=== PATIENT | female | born 1970 | race Two or more races ===

== ENCOUNTER 2021-05-08 09:14 | Emergency (ER) | payer MEDICAID, OTHER ==
[~2021-05-08] VITALS: Ht 167.6 cm; Wt 89.4 kg
[2021-05-08 09:46] VITALS: BP 149/84
[2021-05-08] MEDS ORDERED: HYDROmorphone HCL 2 MG/ML VL IV ONE (10:00)
[2021-05-08] MEDS ORDERED: PROMETHAZINE HCL 25 MG/ML 1ML IM ONE (10:00)
[2021-05-08] MEDS ORDERED: methylPREDNISolone SOD SUCC 125 MG/2 ML VL IM ONE (10:00)
[2021-05-08] MEDS ORDERED: KETOROLAC TROMETH 60MG/2ML VIAL IM ONE (10:00)
[2021-05-08] MEDS ORDERED: PRED20TA2 PO (10:29)
== END 2021-05-08 10:34 | disposition home or self-care (01) ==
LOC: ER 09:14
DX: G89.29 Other chronic pain (principal); M54.50 Low back pain, unspecified; M62.830 Muscle spasm of back; R94.31 Abnormal electrocardiogram [ECG] [EKG]; Z98.51 Tubal ligation status
CPT/HCPCS: 93005; 96372; 99284; J1885

== ENCOUNTER 2021-07-18 08:27 | Emergency (ER) | payer MEDICAID ==
[~2021-07-18] VITALS: Ht 167.6 cm; Wt 90.7 kg
[~2021-07-18 08:27] MED LIST: PRED20TA2 PO
[2021-07-18 09:03] VITALS: BP 150/80
[2021-07-18] MEDS ORDERED: KETOROLAC TROMETH 60MG/2ML VIAL IM ONE (09:30)
[2021-07-18] MEDS ORDERED: TRAM-297 PO (09:44)
[2021-07-18] MEDS ORDERED: PRED20TA2 PO (09:44)
== END 2021-07-18 10:05 | disposition home or self-care (01) ==
LOC: ER 08:27
DX: G89.29 Other chronic pain (principal); M54.50 Low back pain, unspecified; I10 Essential (primary) hypertension; E78.5 Hyperlipidemia, unspecified; Z79.899 Other long term (current) drug therapy
CPT/HCPCS: 96372; 99283; J1885

== ENCOUNTER 2021-08-22 13:00 | Emergency (ER) | payer MEDICAID ==
[~2021-08-22] VITALS: Ht 167.6 cm; Wt 90.7 kg
[~2021-08-22 13:00] MED LIST changes: +TRAM-297 PO
[2021-08-22] MEDS ORDERED: MEPERIDINE HCL (50 MG/ML) 1 ML VIAL IM ONE (14:15)
[2021-08-22] MEDS ORDERED: PROMETHAZINE HCL 25 MG/ML 1ML IM ONE (14:15)
[2021-08-22 14:26] VITALS: BP 113/73
== END 2021-08-22 15:00 | disposition home or self-care (01) ==
LOC: ER 13:00
DX: G89.29 Other chronic pain (principal); M54.50 Low back pain, unspecified; E78.5 Hyperlipidemia, unspecified; I10 Essential (primary) hypertension; Z98.51 Tubal ligation status
CPT/HCPCS: 96372; 99284; J2175; J2550

== ENCOUNTER 2024-02-21 08:51 | Emergency (ER) | payer MEDICAID ==
[~2024-02-21] VITALS: Ht 167.6 cm; Wt 94.7 kg
[2024-02-21] MEDS: KETOROLAC TROMETH 30 MG/ML 1ML VIAL IV ONE (10:03)
[2024-02-21] MEDS: methylPREDNISolone SOD SUCC 125 MG/2 ML VL IM ONE (10:03)
[2024-02-21 10:23] VITALS: BP 156/94; PULSE 84; RESP 17; TEMP 98.9; O2SAT 98
[2024-02-21 10:33] LABS: Urine Bacteria FEW /hpf (None Seen); Urine Blood Negative /uL (Negative); Urine Clarity Clear (Clear); Urine Color Light-Yellow (Yellow); Urine Mucus FEW (None Seen); Urine Protein, UAD TRACE (Negative); Urine Specific Gravity 1.022 (1.001-1.035); Urine Urobilinogen Normal (Negative); Urine WBC 8 /hpf (0 - 5); Urine pH 5.5 (5.0-9.0)
[2024-02-21] MEDS ORDERED: PRED20TA2 PO (11:06)
[2024-02-21] MEDS ORDERED: IBUP-1454 PO (11:06)
--- NOTE | 2024-02-21 11:07 | ED.PDOC ---
Back pain HPI HPI Comments This is a pleasant 53-year-old female that presents with a chief complaint of atraumatic back pain x1 day. Per patient she has a history of chronic back pain, ankylosing spondylolysis and sciatica. Reports acute flare-up that started yesterday while sitting on the couch watching television. The pain is located to the lower back and radiates down her posterior left lower extremity Has not taken medications for the symptoms listed above Denies history of chronic steroid use or history of osteoporosis Denies any history of cancer Denies fevers chills night sweats nausea vomiting unintentional weight loss Denies IV drug use history of HIV/TB Denies abdominal "tearing" pain Denies syncope Denies urinary incontinence or urinary changes Denies numbness tingling of the groin or inner thigh Denies previous back procedure or surgery Chief Complaint: Back Pain Time Seen by MD: 09:53 Primary Care Provider: ARSH Akbar Notes: Nurses Notes, Medications, Allergies Allergies: Coded Allergies: No Known Drug Allergy (Verified Allergy, Unknown, 07/18/21) Home Meds Active Scripts Tramadol Hcl (Ultram) 50 Mg Tab, 50 MG PO TID, #20 TAB Prov:SINDHU JOHNSTON 07/18/21 Prednisone (Prednisone) 20 Mg Tab, 40 MG PO DAILY, #20 MG Prov:SINDHU JOHNSTON 07/18/21 Prednisone (Prednisone) 20 Mg Tab, 40 MG PO DAILY for 10 Days, #20 MG Prov:SINDHU JOHNSTON 05/08/21 Information Source: Patient Mode of Arrival: Ambulatory Past Medical History PAST MEDICAL HISTORY: High Lipids, HTN 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: , 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 Family History Family History: Reviewed,noncontributory to illness Social History Smoker: Non-Smoker Alcohol: Occasionally Drugs: Denies Drug Use Lives In: Home All Other Systems: Reviewed and Negative (Per HPI) Physical Exam General Appearance: No Apparent Distress, Normal HEENT: Head (Normocephalic atraumatic), Normal ENT Inspection, Pharynx Normal, TMs Normal Neck: Full Range of Motion, Non-Tender, Normal, Normal Inspection Respiratory: Chest Non-Tender, Lungs Clear, No Accessory Muscle Use, No Respiratory Distress, Normal Breath Sounds Cardiovascular: No Edema, No JVD, No Murmur, No Gallop, Normal Peripheral Pul ses, Regular Rate/Rhythm Breast Exam: Deferred Gastrointestinal: No Organomegaly, Non Tender, No Pulsatile Mass, Normal Bowel Sounds, Soft Genitalia: Deferred Pelvic: Deferred Rectal: Deferred Extremities: No calf tenderness, Normal capillary refill, Normal inspection, Normal range of motion, Non-tender, No pedal edema Musculoskeletal : Extremity Location: Back (No gross abnormality on inspection. No midline tenderness. Right straight leg raise test positive) Apperance: Normal Neurologic: Alert, No Motor Deficits, Normal Affect, Normal Mood, No Sensory D eficits Cerebellar Function: Normal Reflexes: Normal Skin: Dry, Normal Color, Warm Lymphatic: No Adenopathy Was a procedure done? Was a procedure done?: No Back Pain Differential Dx Differential Diagnosis: Musculoskeletal Pain, Strain, Other X-Ray, Labs, Meds, VS Vital Signs Date Time Temp Pulse Resp B/P (MAP) Pulse Ox O2 Delivery O2 Flow Rate FiO2 02/21/24 10:23 84 17 98 Room Air 02/21/24 10:23 98.9 84 17 156/94 (114) 98 98.9 02/21/24 09:15 99.1 85 16 152/93 (112) 98 Lab Test 02/21/24 09:55 Range/Units Urine Color Light-yellow Yellow Urine Clarity Clear Clear Urine pH 5.5 5.0-9.0 Urine Specific Flushing 1.022 1.001-1.035 Urine Protein Trace H Negative Urine Ketones Negative Negative Urine Blood Negative Negative /uL Urine Nitrite Negative Negative Urine Bilirubin Negative Negative Urine Urobilinogen Normal Negative mg/dL Urine Leukocyte Esterase Negative Negative /uL Urine RBC 1 0 - 4 /hpf Urine WBC 8 0 - 5 /hpf Urine Squamous Epithelial Cells Few <5 /hpf Urine Bacteria Few H None Seen /hpf Urine Mucus Few None Seen Urine Glucose Normal Normal mg/dL Current Medications Medications (Trade) Dose Ordered Sig/Mara Route Start Time Stop Time Status Last Admin Methylprednisolone Sodium Succinate (Solu Medrol) 125 mg ONCE ONCE IM 02/21/24 10:00 02/21/24 10:01 DC 02/21/24 10:03 Ketorolac Tromethamine (Toradol Injection) 30 mg ONCE ONCE IV 02/21/24 10:00 02/21/24 10:01 DC 02/21/24 10:03 X-Ray, Labs, Meds, VS Comment History and physical exam consistent with muscle strain. No indication for imaging at this time. Patient ambulatory Supportive care advised (rest, ice, heat, NSAIDs, stretching exercises) Massage muscles with cold pack or ice for 20 minutes 4 times per day. Usually most useful if there is swelling during the first 48 hours Heating pad on the most painful area for 20 minutes to relieve muscle spasm Sleep and the most comfortable sleeping position (usually on the side with knees bent) Light stretching, no strenuous activity, avoid frequent bending, avoid carrying heavy objects Discussed possible benefits of yoga and acupuncture Patient is stable for discharge at this time. External notes reviewed. Test results and diagnostic imaging interpreted. All diagnostic findings, discharge care, education and instructions provided Follow-up with PCP in 2 to 3 days Patient verbalized understanding and agreed to treatment plan Vital signs stable, afebrile, no acute distress noted Patient ambulatory with strong steady gait Advised to return precautions for any new or worsening symptoms, return to ER immediately for re-evaluation Patient is aware that the purpose of this visit was for an acute medical emergency requiring emergent stabilization. Chronic conditions, including malignancies have not been ruled out. Patient is instructed to follow up with PCP as directed and discharge instructions for continued care and workup. If unable to arrange follow-up, patient is to return to the emergency department for reassessment. Patient (parent or legal guardian if applicable) was given verbal and written discharge instructions and acknowledges understanding Time of 1ST Reevaluation: 11:04 Reevaluation 1ST: Improved Patient Education/Counseling: Diagnosis, Treatment Family Education/Counseling: Diagnosis, Treatment Departure 1 Departure Time of Disposition: 11:06 Impression: Primary Impression: Acute exacerbation of chronic low back pain Disposition: 01 HOME / SELF CARE / HOMELESS Condition: Stable e-Prescriptions Ibuprofen (Ibuprofen) 600 Mg Tab 1 TAB PO TID for 10 Days, #30 TAB 0 Refills Prov: JIMMIE REDDY NP 02/21/24 Prednisone (Prednisone) 20 Mg Tab 40 MG PO DAILY for 5 Days, #10 TAB 0 Refills Prov: JIMMIE REDDY NP 02/21/24 Discharged With: Self Critical Care Note Critical Care Time?: No Stability Stability form required: No Heart Score Heart Score: Heart Score Response (Comments) Value History N/A 0 EKG N/A 0 Age N/A 0 Risk Factors N/A 0 Troponin N/A 0 Total 0 JIMMIE REDDY NP Feb 21, 2024 11:07
== END 2024-02-21 11:14 | disposition home or self-care (01) ==
LOC: ER 08:51
DX: G89.29 Other chronic pain (principal); M54.50 Low back pain, unspecified; I10 Essential (primary) hypertension; E78.5 Hyperlipidemia, unspecified; Z79.52 Long term (current) use of systemic steroids; Z98.890 Other specified postprocedural states; Z79.899 Other long term (current) drug therapy
CPT/HCPCS: 81001; 96372; 96374; 99284; J1885; J2919

== ENCOUNTER 2024-09-19 14:25 | Emergency (ER) | payer MEDICAID ==
[~2024-09-19] VITALS: Ht 167.6 cm; Wt 92.3 kg
[~2024-09-19 14:25] MED LIST changes: +IBUP-1454 PO
[2024-09-19] MEDS: KETOROLAC TROMETH 60MG/2ML VIAL IM ONE (15:18)
[2024-09-19] MEDS: methylPREDNISolone SOD SUCC 125 MG/2 ML VL IM ONE (15:18)
[2024-09-19] MEDS: HYDROcodone-ACET 10/325MG TAB PO ONE (15:19)
--- NOTE | 2024-09-19 15:29 | ED.PDOC ---
Back pain HPI HPI Comments A 53-year-old female with a past medical history of hypertension, hyperlipemia, sciatica presents to the emergency department with a chief complaint of back pain onset 2 days. Patient has been experiencing RT low back pain radiating to RT leg, worsen with movement. Patient follows up with pain management, takes [place] 10 mg for pain, has not been improving symptoms, next appointment is in 3 months. Patient rates pain 9/10. No other symptoms or modifying factors present at this time. Denies history of chronic steroid use or history of osteoporosis Denies any history of cancer Denies fevers chills night sweats nausea vomiting unintentional weight loss Denies IV drug use history of HIV/TB Denies abdominal "tearing" pain Denies syncope Denies urinary incontinence or urinary changes Denies numbness tingling of the groin or inner thigh Chief Complaint: Back Pain Time Seen by MD: 15:05 Primary Care Provider: JULIAN Akbar Notes: Medications, Allergies Allergies: Coded Allergies: No Known Drug Allergy (Verified Allergy, Unknown, 07/18/21) Home Meds Active Scripts Ibuprofen (Ibuprofen) 600 Mg Tab, 1 TAB PO TID for 10 Days, #30 TAB 0 Refills Prov:JIMMIE REDDY NP 02/21/24 Prednisone (Prednisone) 20 Mg Tab, 40 MG PO DAILY for 5 Days, #10 TAB 0 Refills Prov:JIMMIE REDDY NP 02/21/24 Tramadol Hcl (Ultram) 50 Mg Tab, 50 MG PO TID, #20 TAB Prov:SINDHU JOHNSTON 07/18/21 Prednisone (Prednisone) 20 Mg Tab, 40 MG PO DAILY, #20 MG Prov:SINDHU JOHNSTON 07/18/21 Prednisone (Prednisone) 20 Mg Tab, 40 MG PO DAILY for 10 Days, #20 MG Prov:SINDHU JOHNSTON PA 05/08/21 Information Source: Patient Mode of Arrival: Ambulatory Timing: Days Duration: Since onset Location of Back pain: (R) Lower back Radiates to: Anterior: (B) Calf, (R) Thigh Severity: Moderate Prehospital treatment: Pain Meds Quality: Sharp Onset: Spontaneous History of: Chronic Back Pain Modifying Factors: Nothing Past Medical History PAST MEDICAL HISTORY: High Lipids, HTN Past Medical History (Other): sciatica 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: , 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 Family History Family History: Reviewed,noncontributory to illness Social History Smoker: Non-Smoker Alcohol: Occasionally Drugs: Denies Drug Use Lives In: Home All Other Systems: Reviewed and Negative (as per HPI) Physical Exam General Appearance: No Apparent Distress, Normal HEENT: Normal ENT Inspection, Pharynx Normal, TMs Normal Neck: Full Range of Motion, Non-Tender, Normal, Normal Inspection Respiratory: Chest Non-Tender, Lungs Clear, No Accessory Muscle Use, No Respiratory Distress, Normal Breath Sounds Cardiovascular: No Edema, No JVD, No Murmur, No Gallop, Normal Peripheral Pu lses, Regular Rate/Rhythm Breast Exam: Deferred Gastrointestinal: No Organomegaly, Non Tender, No Pulsatile Mass, Normal Bowel Sounds, Soft Genitalia: Deferred Pelvic: Deferred Rectal: Deferred Extremities: No calf tenderness, Normal capillary refill, No pedal edema Musculoskeletal : Location: Right Extremity Location: Back (no gross abnormality on inspection, no soft tissue swelling, open wounds, no midline TTP, no bony step offs on palpation, localized TTP to RT lumbar sacral region, RT straight leg raise test positive, neural vascual sensation intact) Apperance: Normal 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 Was a procedure done?: No X-Ray, Labs, Meds, VS Vital Signs Date Time Temp Pulse Resp B/P (MAP) Pulse Ox O2 Delivery O2 Flow Rate FiO2 09/19/24 14:43 98.9 102 18 143/78 (99) 99 98.9 Current Medications Medications (Trade) Dose Ordered Sig/Mara Route Start Time Stop Time Status Last Admin Methylprednisolone Sodium Succinate (Solu Medrol) 125 mg ONCE ONCE IM 09/19/24 15:15 09/19/24 15:16 DC 09/19/24 15:18 Ketorolac Tromethamine (Toradol Injection) 60 mg ONCE ONCE IM 09/19/24 15:15 09/19/24 15:16 DC 09/19/24 15:18 Acetaminophen/ Hydrocodone Bitart ([place] 10/325MG Tab) 1 tab ONCE ONCE PO 09/19/24 15:15 09/19/24 15:16 DC 09/19/24 15:19 X-Ray, Labs, Meds, VS Comment A 53-year-old female with a past medical history of hypertension, hyperlipemia, sciatica presents to the emergency department with a chief complaint of back pain onset 2 days. Patient arrives alert and oriented, ABC's intact, afebrile, vital signs stable, saturating well in room air Patient was given: [place] 10 mg PO, Ketorolac 60 mg IM, Methylprednisolone 125 mg IM. Tolerated medications with no adverse reaction. Additional MDM Review of External, Non-ED records: External records reviewed. Discussion with independent historian (EMS, family) history obtained from the patient/parents (if applicable) at bedside Chronic conditions affecting care: HTN, HLD, sciatica Social determinants of health affecting care: etoh occasionally Consideration of admission (observation or admission): I considered escalation of care to admission for this patient, however given the reassuring workup, the patient is safe for outpatient management. Time of 1ST Reevaluation: 15:35 Reevaluation 1ST: Improved Patient Education/Counseling: Diagnosis, Treatment Family Education/Counseling: No Family Present Departure 1 Departure Time of Disposition: 16:15 Impression: Primary Impression: Lumbar radiculopathy Disposition: 01 HOME / SELF CARE / HOMELESS Condition: Stable Discharged With: Relative Critical Care Note Critical Care Time?: No Stability Stability form required: No Heart Score Heart Score: Heart Score Response (Comments) Value History N/A 0 EKG N/A 0 Age N/A 0 Risk Factors N/A 0 Troponin N/A 0 Total 0 I personally scribed for JIMMIE REDDY PAPER RULER ([email or web address]) on 09/19/24 at 15:29. Electronically submitted by Sanjuana Alfaro ([email or web address]). JIMMIE REDDY NP Sep 19, 2024 15:29
[2024-09-19 16:21] VITALS: BP 129/63; PULSE 76; RESP 17; TEMP 97.6; O2SAT 96
== END 2024-09-19 16:26 | disposition home or self-care (01) ==
LOC: ER 14:25
DX: M54.16 Radiculopathy, lumbar region (principal); I10 Essential (primary) hypertension; E78.5 Hyperlipidemia, unspecified; Z98.51 Tubal ligation status; Z98.890 Other specified postprocedural states; Z79.1 Long term (current) use of non-steroidal anti-inflammatories (NSAID); Z79.52 Long term (current) use of systemic steroids; Z79.899 Other long term (current) drug therapy
CPT/HCPCS: 96372; 99284; J1885; J2919